=== PATIENT | female | born 1950 | race Caucasian/White ===

== ENCOUNTER 2016-08-11 09:15 | Outpatient (CLI) | payer OTHER | END 2016-08-11 20:00 | disposition home or self-care (01) | LOC: SMA 09:15 | PROVIDERS: ATTEND Family Medicine | DX: N63 Unspecified lump in breast (principal); R92.0 Mammographic microcalcification found on diagnostic imaging of breast; R92.2 Inconclusive mammogram | CPT/HCPCS: 76641; G0204; G0206 ==

== ENCOUNTER 2017-11-09 13:10 | Outpatient (CLI) | payer OTHER ==
[~2017-11-09 13:10] MED LIST: COR25 PO; FENO48TA4 PO; GLIP2.5T3 PO; HYDR25TA4 PO; LEVO25TA7 PO; LORA10TA7 PO; METF1000 PO; PIOG15TA66 PO; PRO40 PO
== END 2017-11-09 20:51 | disposition home or self-care (01) ==
LOC: SMA 13:10
PROVIDERS: ATTEND Family Medicine
DX: Z12.31 Encounter for screening mammogram for malignant neoplasm of breast (principal)
CPT/HCPCS: 77067

== ENCOUNTER 2018-08-30 10:27 | Emergency (ER) | payer BC, OTHER ==
[~2018-08-30] VITALS: Ht 154.9 cm; Wt 79.4 kg
[~2018-08-30 10:27] MED LIST changes: -PIOG15TA66 PO; +PIOG15TA8 PO
[2018-08-30 10:32] VITALS: BP_SYST 143
--- NOTE | 2018-08-30 10:41 | NUR ---
Patient to ER bed 2 to gown for evaluation. Side rails up. Report given to Latoya SWENSON.
--- NOTE | 2018-08-30 10:49 | NUR ---
PATIENT IN ER BED 2. PATIENT AWAKE AND ALERT, VERBALLEY RESPONSIVE. PATIENT STATED "I FELL OUTSIDE TRYING TO GO INSIDE NEAR THE SCREEN DOOR. I HURT MY RIGHT SHOULDER WELL". PATIENT DENIES LOSS OF CONSCIOUSNESS. PATIENT STATES HER PAIN IS 8/10. PATIENT STATED THAT SHE HAS MEDICAL HISTORY OF DM AND HTN. VISITOR AT BEDSIDE.
[2018-08-30] MEDS: LIDOCAINE 1% 10 MG/ML, 20 ML MDV INJ ONE (11:30)
[2018-08-30 13:01] VITALS: BP_SYST 144
--- NOTE | 2018-08-30 13:01 | NUR ---
Patient given written and verbal discharge instructions and verbalizes understanding. ER MD discussed with patient the results and treatment provided. Patient in stable condition. ID arm band removed. Rx of Tramadol given. Patient educated on pain management and to follow up with PMD. Pain Scale 0/10. Opportunity for questions provided and answered. Medication side effect fact sheet provided.
== END 2018-08-30 13:01 | disposition home or self-care (01) ==
LOC: SED 10:27
DX: S01.81XA Laceration without foreign body of other part of head, initial encounter (principal); I12.0 Hypertensive chronic kidney disease with stage 5 chronic kidney disease or end stage renal disease; E11.22 Type 2 diabetes mellitus with diabetic chronic kidney disease; N18.6 End stage renal disease; E78.5 Hyperlipidemia, unspecified; Z90.49 Acquired absence of other specified parts of digestive tract; Z90.710 Acquired absence of both cervix and uterus; Z88.5 Allergy status to narcotic agent; Z88.8 Allergy status to other drugs, medicaments and biological substances; Z79.899 Other long term (current) drug therapy; W01.198A Fall on same level from slipping, tripping and stumbling with subsequent striking against other object, initial encounter; Y93.89 Activity, other specified; Y92.89 Other specified places as the place of occurrence of the external cause; Y99.8 Other external cause status
CPT/HCPCS: 12011; 70160; 73030; 99283; J2001

== ENCOUNTER 2019-02-14 10:00 | Outpatient (CLI) | payer BC | END 2019-02-14 20:54 | disposition home or self-care (01) | LOC: SMA 10:00 | PROVIDERS: ATTEND Physician Assistant Medical | DX: Z12.31 Encounter for screening mammogram for malignant neoplasm of breast (principal) | CPT/HCPCS: 77067 ==

== ENCOUNTER 2020-02-27 08:29 | Outpatient (CLI) | payer BC ==
[~2020-02-27 08:29] MED LIST changes: -FENO48TA4 PO; +FENO48TA7 PO
== END 2020-02-27 20:38 | disposition home or self-care (01) ==
LOC: SMA 08:29
PROVIDERS: ATTEND Family Medicine
DX: Z12.31 Encounter for screening mammogram for malignant neoplasm of breast (principal)
CPT/HCPCS: 77067